=== PATIENT | male | born 1955 | race Caucasian/White ===

== ENCOUNTER → 2020-07-02 13:33 | Outpatient (BNVA) | payer OTHER, SELFPAY | PROVIDERS: PCP Internal Medicine; Visit Provider Urology | DX: Z76.89 Persons encountering health services in other specified circumstances (principal) ==

== ENCOUNTER → 2020-11-25 09:40 | Outpatient (BNVA) | payer OTHER, SELFPAY | PROVIDERS: PCP Internal Medicine; Visit Provider Urology | DX: S76.319A Strain of muscle, fascia and tendon of the posterior muscle group at thigh level, unspecified thigh, initial encounter (principal) | CPT/HCPCS: 51798 ==

== ENCOUNTER → 2021-06-02 10:37 | Outpatient (BNVA) | payer OTHER, SELFPAY | PROVIDERS: PCP Internal Medicine; Visit Provider Urology ==

== ENCOUNTER → 2021-07-14 12:47 | Outpatient (BNVA) | payer OTHER, SELFPAY | PROVIDERS: PCP Internal Medicine; Visit Provider Urology ==

== ENCOUNTER → 2021-07-22 15:26 | Outpatient (BNVA) | payer OTHER, SELFPAY | PROVIDERS: PCP Internal Medicine; Referring Provider Internal Medicine; Visit Provider Surgery ==

== ENCOUNTER 2021-08-20 16:08 | Outpatient (REF) | payer OTHER, SELFPAY ==
[2021-08-20 17:51] LABS: Prostate Specific Antigen 0.74 ng/mL (<0.05-4.0)
== END 2021-08-20 16:09 | disposition home or self-care (01) ==
LOC: HO.LAB 16:08
PROVIDERS: Visit Provider Urology
DX: Z12.5 Encounter for screening for malignant neoplasm of prostate (principal); N13.8 Other obstructive and reflux uropathy; N40.1 Benign prostatic hyperplasia with lower urinary tract symptoms
CPT/HCPCS: 36415; 84153

== ENCOUNTER → 2021-08-24 13:03 | Outpatient (BNVA) | payer OTHER, SELFPAY | PROVIDERS: PCP Internal Medicine; Visit Provider Urology ==

== ENCOUNTER 2021-09-01 06:00 | Day surgery (SDC) | payer OTHER, SELFPAY ==
[2021-08-26 14:04] VITALS: BMI 27.6
--- NOTE | 2021-08-30 12:56 | HO.ANESPROP2 ---
Documented by User: Karen Sexton NP 08/30/21 12:56 HPI - Anesthesia Eval Consult details Narrative: 65yo M for Right Hernia Repair Inguinal PMFSH Active Problems Active Problems: All Active Problems (Updated 08/26/21 @ 14:04 by Joanna Clemens RN) BPH w urinary obs/LUTS (Acute) Microscopic hematuria (Acute) Hamstring muscle strain (Acute) Prostatitis (Acute) Inguinal hernia (Acute) Past Medical History Medical History (Updated 08/26/21 @ 14:04 by Joanna Clemens RN) Bladder outlet obstruction COVID-19 vaccine series completed Hx of melanoma of skin Incomplete emptying of bladder Microscopic hematuria Nocturia Prostatitis Smoker Weak urinary stream Surgical History Surgical History (Updated 08/26/21 @ 14:04 by Joanna Clemens RN) H/O colonoscopy Hx of cholecystectomy Hx of melanoma excision Hx of parotidectomy Social History Social History (Updated 08/26/21 @ 14:06 by Joanna Clemens RN) Alcohol intake: former Patient Tobacco Use Status: Current everyday Tobacco user Tobacco use type: Cigarette Cigarettes Per Day: 12 Years Smoked: 50 Use of substances other than those prescribed or required for medical reasons: No Have you been hit, kicked, punched, or otherwise hurt by someone within the past year? If so, by whom?: No Are you DNR?: No Advance Directives: No Advance Directives Information Provided: Yes (brochure mailed) Advance Directives on File: No Recently lost weight without trying: No Eating poorly because of decreased appetite: No Nutrition Risks: No Nutritional Risk Poor oral hygiene: No Meds Allergies Allergy/AdvReac Type Severity Reaction Status Date / Time No Known Allergies Allergy Verified 09/01/21 06:22 Home Medications Medication Instructions Recorded Confirmed Last Taken Type lisinopril 20 1 tab PO DAILY 07/14/21 08/26/21 Unknown History mg-hydrochlorothiazide 25 mg tablet Exam Exam Date and Time: August 30, 2021 1256 Height,Weight and Vital Signs: Height 5 ft 6 in Weight 77.564 kg Assessment and Plan Assessment Anesthesia Assessment: Chart Reviewed Documented by User: Regan Wright MD 09/01/21 07:28 PMFSH Past Medical History Medical History (Updated 08/26/21 @ 14:04 by Joanna Clemens RN) Bladder outlet obstruction COVID-19 vaccine series completed Hx of melanoma of skin Incomplete emptying of bladder Microscopic hematuria Nocturia Prostatitis Smoker Weak urinary stream Family History Family history of problems with anesthesia: No Surgical History Surgical History (Updated 08/26/21 @ 14:04 by Joanna Clemens RN) H/O colonoscopy Hx of cholecystectomy Hx of melanoma excision Hx of parotidectomy History of Problems with Anesthesia: No Social History Social History (Updated 08/26/21 @ 14:06 by Joanna Clemens RN) Alcohol intake: former Patient Tobacco Use Status: Current everyday Tobacco user Tobacco use type: Cigarette Cigarettes Per Day: 12 Years Smoked: 50 Use of substances other than those prescribed or required for medical reasons: No Have you been hit, kicked, punched, or otherwise hurt by someone within the past year? If so, by whom?: No Are you DNR?: No Advance Directives: No Advance Directives Information Provided: Yes (brochure mailed) Advance Directives on File: No Recently lost weight without trying: No Eating poorly because of decreased appetite: No Nutrition Risks: No Nutritional Risk Poor oral hygiene: No Meds Allergies Allergy/AdvReac Type Severity Reaction Status Date / Time No Known Allergies Allergy Verified 09/01/21 06:22 Home Medications Medication Instructions Recorded Confirmed Last Taken Type lisinopril 20 1 tab PO DAILY 07/14/21 08/26/21 Unknown History mg-hydrochlorothiazide 25 mg tablet Exam Airway Mallampati Class: II TM Dist: >3cm Neck ROM: Full Loose/Missing/Broken Teeth: No Heart: ok Lungs: ok Assessment and Plan Final Anesthetic Review Family History of Problems with Anesthesia: No History of Problems with Anesthesia: No NPO: Yes ASA Class: II Final Preanesthetic Review: No Changes in Pt Med Stat, Meds/Allgs Chart Reviewed, Consent Obtained/Reviewed and Anes Risks/Benef Reviewed Patient Risk: Low Procedure Risk: Low Anesthetic Plan Anesthetic Plan: GA and Agree w/ Assess. and Plan Disposition: Standard PACU
[2021-09-01] VITALS (7 sets, daily range): BP systolic 101–154; BP diastolic 65–77; PULSE 57–69; RESP 14–16; TEMP 36.1–36.5; O2SAT 97–99
[2021-09-01] MEDS: Lactated Ringers 1,000 ML 100 ML IVCONT (06:39)
--- NOTE | 2021-09-01 07:10 | MHC.SHP ---
Pre-Procedural Eval Section A Date of Service: 09/01/21 The patient is an INPATIENT: No Changes since office visit: Yes Patient answered all questions; No Cold of Flu in the past 2 weeks, No New Medical Problems and No Changes in Medication The History & Physical has been completed within 30 days and I have reviewed it.: No Section B Chief Complaint: Inguinal Hernia Details of Present Illness: No pain, nausea, vomiting, hernia is reducible with light pressure Relevant Family History (Specify if Yes): No Relevant Social History: None Present Medications: see Short Stay Collaborative assessment Medical History: Significant History (BPH) History of Previous Operations: No relevant previous surgery Allergies: Allergies Allergy/AdvReac Type Severity Reaction Status Date / Time No Known Allergies Allergy Verified 09/01/21 06:22 Review of Systems Sugical H&P ROS: Negative: Constitution, Cardiovascular, Respiratory, Neurological, Psychiatric, Hem-Onc, Allergic/Immunologic, Gastrointestinal, Genitourinary, Musculoskeletal, Integumentary, Endocrine and Eyes/Ears/Nose/Throat Exam Surgical H&P Exam: Normal: HEENT, Normal: Heart, Normal: Lungs, Normal: Extremities, Normal: Abdomen (Reducible RIH), Normal: Skin and Normal: Neurological Plan Diagnosis/Plan: Unchanged I have reviewed the history and physical and performed a pertinent physical examination on my patient. No changes have occurred unless specified.
--- NOTE | 2021-09-01 07:15 | W.PM.OPN ---
Operative Note Operative Note Date of Service: 09/01/21 Narrative: Preoperative diagnosis:Right inguinal hernia Postoperative diagnosis:same Procedure:Repair of right inguinal hernia with mesh Surgeon: Adonis Pickett MD Erp Implementation Consultant: Elaine Damon PA-C Anesthesia:General LMA Indications for procedure:65 year old male patient presenting with a palpable lump in the right groin which increases with lifting and coughing Operative findings: large indirect and small direct inguinal hernia Specimen: lipoma of the cord Estimated blood loss: 2 mls Complications: none Procedure details: Patient was brought to the OR and placed in a supine position.? After administering general anesthesia the patient's abdomen was prepped with ChloraPrep and draped in a sterile fashion.? A surgical time-out was called the consent confirmed.? Patient received preoperative antibiotics and Venodyne boots were in place. Local anesthesia consisting of 0.5% Sensorcaine with epinephrine was infiltrated over the right inguinal ligament.? Incision was then made in oblique fashion over the inguinal ligament.? This carried out through subcutaneous tissue past Shilpa's fashion up to the external oblique aponeurosis.? Additional local was infiltrated below the external oblique aponeurosis.? This was then incised with a scalpel wide with the Metzenbaum scissors.? Spermatic cord was then dissected free from the surrounding inguinal canal and retracted using a [place] drain. The floor of the inguinal canal was examined and a small direct hernia was identified. ? Fibers of the cremasteric muscle were then and an indirect lipoma of the cord was identified.? This was dissected down to the internal ring.? The lipoma was ligated with a 3-0 Polysorb tie and excised. No sac was identified. ?The indirect space was dissected into the preperitoneal space and opened further with an open ray-shilpi sponge. ? A large PHS mesh was then obtained.? The circular underlay was placed into the preperitoneal space and deployed.? The overlay was then secured to the pubic tubercle conjoined tendon shelving edge of the inguinal ligament using interrupted 0 Polysorb sutures.? A slit was made in the mesh and the mesh were wrapped around the spermatic cord at the internal ring.? This was then secured to the shelving edge of the inguinal ligament using the 0 Polysorb suture.? This was felt to be loose enough to allow the tip of an index finger to pass.? Wounds were checked for hemostasis.? Wounds were irrigated with saline solution and suctioned dry.? External oblique aponeurosis was then closed using a running 2 0 Polysorb suture.? Shilpa's fascia and dermis reapproximated using interrupted 3-0 Polysorb sutures.? Skin was then closed using a running subcuticular 4-0 Polysorb suture.? Steri-Strips 2 x 2 gauze and Tegaderm were then applied.? The patient tolerated the procedure well.? Sponge, instrument, needle counts reported as correct.? Patient was transferred to PACU in stable condition.
== END 2021-09-01 09:47 | disposition home or self-care (01) ==
PROVIDERS: PCP Internal Medicine; Visit Provider Surgery
PROC: (CPT 49505; principal; 2021-09-01 07:30)
DX: K40.90 Unilateral inguinal hernia, without obstruction or gangrene, not specified as recurrent (principal); D17.6 Benign lipomatous neoplasm of spermatic cord; Z79.899 Other long term (current) drug therapy; Z90.49 Acquired absence of other specified parts of digestive tract; F17.210 Nicotine dependence, cigarettes, uncomplicated
CPT/HCPCS: 49505; 88304; C1781; J0690; J1100; J1885; J2250; J2405; J3010

== ENCOUNTER → 2021-09-09 10:08 | Outpatient (BNVA) | payer OTHER, SELFPAY | PROVIDERS: PCP Internal Medicine; Visit Provider Surgery | DX: Z48.815 Encounter for surgical aftercare following surgery on the digestive system (principal); Z87.19 Personal history of other diseases of the digestive system ==

== ENCOUNTER → 2021-10-08 11:04 | Outpatient (BNVA) | payer OTHER, SELFPAY | PROVIDERS: PCP Internal Medicine; Visit Provider Surgery | DX: Z13.89 Encounter for screening for other disorder (principal) ==

== ENCOUNTER → 2021-10-22 13:29 | Outpatient (BNVA) | payer OTHER, SELFPAY | PROVIDERS: PCP Internal Medicine; Visit Provider Urology | DX: N40.1 Benign prostatic hyperplasia with lower urinary tract symptoms (principal) ==

== ENCOUNTER → 2021-11-03 11:58 | Outpatient (BNVA) | payer OTHER, SELFPAY | PROVIDERS: PCP Internal Medicine; Visit Provider Urology | DX: N41.9 Inflammatory disease of prostate, unspecified (principal) ==

== ENCOUNTER → 2021-12-28 12:59 | Outpatient (BNVA) | payer OTHER, SELFPAY | PROVIDERS: PCP Internal Medicine; Visit Provider Urology | DX: R10.32 Left lower quadrant pain (principal) | CPT/HCPCS: 51798 ==

== ENCOUNTER → 2022-11-24 13:24 | Outpatient (BNVA) | payer OTHER, SELFPAY | PROVIDERS: PCP Internal Medicine; Visit Provider Nurse Practitioner Family | DX: R10.32 Left lower quadrant pain (principal); N50.82 Scrotal pain | CPT/HCPCS: 20552 ==

== ENCOUNTER 2023-01-05 15:36 | Outpatient (AMB) | payer OTHER, SELFPAY ==
--- NOTE | 2023-01-05 15:58 | MHC.OFFVIS ---
Intake Intake Visit Reasons: 6w follow up Intake Note: Patient is present for follow up Prostatitis Urology Medication: finasteride Blood Thinner: none Artificial Plastic Eye Maker Required: No Accompanied by: Self / Same As Patient Allergies No Known Allergies Allergy (Verified 01/08/23 20:54) Medication List - Last Reconciled 01/08/23 by LIDIA Romano finasteride 5 mg PO DAILY 90 days lisinopril-hydrochlorothiazide 20-25 mg 1 tab PO DAILY HPI HPI Comments History of Present Illness Details David is a very pleasant 67-year-old male patient of Dr. Solorzano. He has a past medical history of bladder outlet obstruction, history of melanoma of the skin on his face with excision, incomplete bladder emptying, microscopic hematuria, nocturia, prostatitis, smoker, and weak urinary stream. He presents to the office today for a follow up. Of note, patient was previously seen approximately 1 month ago at which time a nerve block was performed in the office for ongoing left-sided testicular/scrotal/groin pain. When asked he reports to be doing and feeling much better. He reports significant improvement in testicular/scrotal/groin pain he had been experiencing over the last few months. He reports pain to be dull however not as sharp and intense as prior. During last office visit patient was referred to physical therapy however in discussion with the patient today he reports to not have initiated therapy however, would like to. In office urinalysis results reviewed with the patient today. Will refer to physical therapy as planned. Patient denies any urological issues or concerns at this time. When asked he denies urinary urgency, urinary frequency, incontinence, nocturia, hematuria, dysuria, foul smelling urine, changes to urinary stream, flank pain, fever, and or chills. He is happy with his current voiding parameters. Patient reports compliance with finasteride daily. Discussed obtaining PSA for further assessment evaluation prior to next office visit. PSAa are as follows: 09/07--0.7 07/10--0.8 08/09--1.1 PFSH Medical History Bladder outlet obstruction COVID-19 vaccine series completed Hx of melanoma of skin Incomplete emptying of bladder Microscopic hematuria Nocturia Prostatitis Smoker Weak urinary stream Surgical History H/O colonoscopy History of right inguinal hernia repair (09/01/21) Hx of cholecystectomy Hx of melanoma excision Hx of parotidectomy Social History Alcohol intake: former Patient Tobacco Use Status: Current everyday Tobacco user Tobacco use type: Cigarette Cigarettes Per Day: 12 Years Smoked: 50 Review of Systems Const Reports no additional complaints Eyes Reports no additional complaints ENT Reports no additional complaints Card Reports no additional complaints Resp Reports no additional complaints GI Reports no additional complaints Reports as per HPI Neuro Reports no additional complaints Psych Reports no additional complaints Endo Reports no additional complaints Alexy/Lymph Reports no additional complaints Aller/Immun Reports no additional complaints Physical Exam Const General: cooperative, healthy appearing, comfortable, no acute distress, well developed, alert and awake Orientation/consciousness: patient oriented x3 Limitations: no limitations HEENT Head: Yes normal to inspection, Yes normocephalic and Yes atraumatic Ears: hearing grossly normal bilaterally Eyes General: appearance normal, both eyes and all related structures Neck Neck: Yes normal visual inspection and Yes trachea midline Chest Chest palpation & inspection: normal inspection of the chest Resp Effort & Inspection: normal respiratory effort and able to speak in complete sentences Cardio Rate: regular rate GI Inspection: Yes normal to inspection General: Yes no CVA tenderness Back/Spine/Pelvis Back: no CVA tenderness Skin General skin exam: no rashes or lesions noted Neuro General: patient oriented x3 Extrem General: Yes normal to inspection Psych Appearance: grossly normal and well kempt Mental Status: mental status grossly normal Speech and movement: Normal speech and movement present and Clear speech present Affect: normal affect Attitude: cooperative Thought process: Normal thought process present Thought content: Normal thought content present Insight: Good insight present (Psych) Judgement: Good judgement present (Psych) Results AMB Urinalysis, Automated UA Leukoctes 0.2 Dequan/uL Last Edit by Kt Dumont on 01/05/23 16:20 UA Nitrite Last Edit by Kt Dumont on 01/05/23 16:20 UA Urobilinogen 0.2 mg/dL Last Edit by Kt Dumont on 01/05/23 16:20 UA Protein 15 mg/dL Last Edit by Kt Dumont on 01/05/23 16:20 UA pH 5.5 Last Edit by Kt Thomasrudy on 01/05/23 16:20 UA Blood 0 Mihai/uL Last Edit by Deanjenny Thomasrudy on 01/05/23 16:20 UA Specific Vantage 1.025 Last Edit by Ranjunior Martharudy on 01/05/23 16:20 UA Ketone Last Edit by Ranjunior Martharudy on 01/05/23 16:20 UA Bilirubin 0 mg/dL Last Edit by Ranolmanjenny Thomasrudy on 01/05/23 16:20 UA Glucose 0 mg/dL Last Edit by Kt Martharudy on 01/05/23 16:20 Results Reviewed Results Reviewed: Laboratory Last Values Urine pH (Auto) 5.5 01/05/23 16:17 Specific Vantage (Auto) 1.025 01/05/23 16:17 Urine Protein (Auto) 15 mg/dL 01/05/23 16:17 Glucose (UA)(Auto) 0 mg/dL 01/05/23 16:17 Urine Blood (Auto) 0 Mihai/uL 01/05/23 16:17 Urine Bilirubin (Auto) 0 mg/dL 01/05/23 16:17 Urine Urobilinogen (Auto) 0.2 mg/dL 01/05/23 16:17 Leukocyte Esterase (Auto) 0.2 Dequan/uL 01/05/23 16:17 Assessment & Plan Assessment & Plan (1) Scrotal pain: Code(s): N50.82 - Scrotal pain (2) Deep inguinal pain, left: Code(s): R10.32 - Left lower quadrant pain (3) BPH w urinary obs/LUTS: Code(s): N40.1 - Benign prostatic hyperplasia with lower urinary tract symptoms; N13.8 - Other obstructive and reflux uropathy Plan In office urinalysis results reviewed with the patient today. Patient reports significant improvement in scrotal/testicular/groin pain since receiving nerve block at last office visit. Will again refer to physical therapy as discussed and planned. Patient denies any urological issues or concerns at this time. Continue finasteride as discussed and prescribed. PSA ordered Discussed quitting/limiting cigarette smoking for overall health and well-being. Follow-up in 3 months with lab to be completed prior; or sooner with any issues, concerns, and or questions. Orders: Orders Prostate Specific Antigen Today N13.8 - Other obstructive and reflux uropathy, N40.1 - Benign prostatic hyperplasia with lower urinary tract symptoms AMB Urinalysis Automated 01/05/23 Z13.9 - Encounter for screening, unspecified Patient Instructions: The patient had an opportunity to ask questions regarding the treatment plan. All questions were answered. Physical exam, labs, and imaging were discussed and reviewed in detail. As well as risks, benefits, and discussion of treatment choices. No major barriers to understanding were identified. The patient expressed understanding and agreement with the above treatment plan. The patient was made aware they should contact our office by phone for worsening of their current condition, the appearance of new symptoms, or with any questions or concerns. Compliance is encouraged with any medications and follow up testing that is ordered. It is a privilege to be allowed the opportunity to participate in? your urological care.? Again, if you have any questions or concerns If you have any questions or concerns please do not hesitate to contact me. The office is [phone]. This note is constructed using voice recognition software. While every effort has been made to ensure accuracy labor relations analyst errors may have been included. Yours sincerely, LIDIA Romano Coding Level of Care Code Est Pt Level 3 (40967) Diagnoses Scrotal pain N50.82 Deep inguinal pain, left R10.32 BPH w urinary obs/LUTS N40.1; N13.8
== END 2023-01-05 16:36 | disposition home or self-care (01) ==
PROVIDERS: PCP Internal Medicine; Visit Provider Nurse Practitioner Family
DX: N50.82 Scrotal pain (principal); R10.32 Left lower quadrant pain; N40.1 Benign prostatic hyperplasia with lower urinary tract symptoms; N13.8 Other obstructive and reflux uropathy
CPT/HCPCS: 99213

== ENCOUNTER → 2023-01-05 15:36 | Outpatient (BNVA) | payer OTHER, SELFPAY | PROVIDERS: PCP Internal Medicine; Visit Provider Nurse Practitioner Family ==

== ENCOUNTER 2023-04-20 16:11 | Outpatient (REF) | payer OTHER, SELFPAY ==
[2023-04-20 18:14] LABS: Prostate Specific Antigen 0.53 ng/mL (<0.05-4.0)
== END 2023-04-20 16:12 | disposition home or self-care (01) ==
LOC: HO.LAB 16:11
PROVIDERS: Visit Provider Nurse Practitioner Family
DX: Z12.5 Encounter for screening for malignant neoplasm of prostate (principal); N40.1 Benign prostatic hyperplasia with lower urinary tract symptoms; N13.8 Other obstructive and reflux uropathy
CPT/HCPCS: 36415; 84153

== ENCOUNTER 2023-04-24 15:31 | Outpatient (AMB) | payer OTHER, SELFPAY ==
--- NOTE | 2023-04-24 15:31 | MHC.OFFVIS ---
Intake Intake Visit Reasons: 3m follow up Intake Note: Patient is present for follow up Prostatitis/lab (psa 0.53) Urology Medication: finasteride Blood Thinner: none Assembler Equipment Required: No Accompanied by: Self / Same As Patient Allergies No Known Allergies Allergy (Verified 04/24/23 20:22) Medication List - Last Reconciled 04/24/23 by LIDIA Romano finasteride 5 mg PO DAILY 90 days lisinopril-hydrochlorothiazide 20-25 mg 1 tab PO DAILY HPI HPI Comments History of Present Illness Details David is a very pleasant 67-year-old male patient of Dr. Solorzano. He has a past medical history of bladder outlet obstruction, history of melanoma of the skin on his face with excision, incomplete bladder emptying, microscopic hematuria, nocturia, prostatitis, smoker, and weak urinary stream. He presents to the office today for a follow up. Recent PSA results reviewed with the patient today. As noted below. Discussed taking finasteride Monday, Wednesdays, and Fridays opposed to daily. Patient denies any bothersome urinary issues at this time. When asked he denies urinary urgency, urinary frequency, incontinence, nocturia, hematuria, dysuria, foul smelling urine, changes to urinary stream, flank pain, fever, and or chills. He reports to be happy with current voiding parameters. He discusses continuation of left-sided testicular/scrotal/groin pain. He reports noting significant improvement in left-sided testicular/groin pain after receiving rectus abdominus insertion site injection in November. He otherwise denies any other issues or concerns. In office urinalysis results reviewed with the patient today. PSAa are as follows: 05/11--0.5 09/07--0.7 07/10--0.8 08/09--1.1 PFSH Medical History Smoker Hx of melanoma of skin COVID-19 vaccine series completed Prostatitis Bladder outlet obstruction Incomplete emptying of bladder Nocturia Weak urinary stream Microscopic hematuria Surgical History History of right inguinal hernia repair (09/01/21) Hx of parotidectomy H/O colonoscopy Hx of cholecystectomy Hx of melanoma excision Social History Alcohol intake: former Patient Tobacco Use Status: Current everyday Tobacco user Tobacco use type: Cigarette Cigarettes Per Day: 12 Years Smoked: 50 Review of Systems Const Reports no additional complaints Eyes Reports no additional complaints ENT Reports no additional complaints Card Reports no additional complaints Resp Reports no additional complaints GI Reports no additional complaints Reports as per HPI Skin/Breast Reports as per HPI Neuro Reports no additional complaints Psych Reports no additional complaints Endo Reports no additional complaints Alexy/Lymph Reports no additional complaints Aller/Immun Reports no additional complaints Physical Exam Const General: cooperative, healthy appearing, comfortable, no acute distress, well developed, alert and awake Orientation/consciousness: patient oriented x3 Limitations: no limitations HEENT Head: Yes normal to inspection, Yes normocephalic and Yes atraumatic Ears: hearing grossly normal bilaterally Eyes General: appearance normal, both eyes and all related structures Neck Neck: Yes normal visual inspection and Yes trachea midline Chest Chest palpation & inspection: normal inspection of the chest Resp Effort & Inspection: normal respiratory effort and able to speak in complete sentences Cardio Rate: regular rate GI Inspection: Yes normal to inspection General: Yes no CVA tenderness Back/Spine/Pelvis Back: no CVA tenderness Skin General skin exam: no rashes or lesions noted Neuro General: patient oriented x3 Extrem General: Yes normal to inspection Psych Appearance: grossly normal and well kempt Mental Status: mental status grossly normal Speech and movement: Normal speech and movement present and Clear speech present Affect: normal affect Attitude: cooperative Thought process: Normal thought process present Thought content: Normal thought content present Insight: Good insight present (Psych) Judgement: Good judgement present (Psych) Results AMB Urinalysis, Automated UA Leukoctes 0 Dequan/uL Last Edit by [facility] on 04/24/23 15:44 UA Nitrite Negative Last Edit by [facility] on 04/24/23 15:44 UA Urobilinogen 0.2 mg/dL Last Edit by [facility] on 04/24/23 15:44 UA Protein 0 mg/dL Last Edit by [facility] on 04/24/23 15:44 UA pH 5.5 Last Edit by [facility] on 04/24/23 15:44 UA Blood 0 Mihai/uL Last Edit by [facility] on 04/24/23 15:44 UA Specific Molino 1.030 Last Edit by Kt Thomasrudy on 04/24/23 15:44 UA Ketone Negative Last Edit by Kt Dumont on 04/24/23 15:44 UA Bilirubin 0 mg/dL Last Edit by Kt Thomasrudy on 04/24/23 15:44 UA Glucose 0 mg/dL Last Edit by Kt Thomasrudy on 04/24/23 15:44 Results Reviewed Results Reviewed: Laboratory Last Values Urine pH (Auto) 5.5 04/24/23 15:33 Specific Molino (Auto) 1.030 04/24/23 15:33 Urine Protein (Auto) 0 mg/dL 04/24/23 15:33 Glucose (UA)(Auto) 0 mg/dL 04/24/23 15:33 Urine Ketones (Auto) Negative 04/24/23 15:33 Urine Blood (Auto) 0 Mihai/uL 04/24/23 15:33 Urine Nitrite (Auto) Negative 04/24/23 15:33 Urine Bilirubin (Auto) 0 mg/dL 04/24/23 15:33 Urine Urobilinogen (Auto) 0.2 mg/dL 04/24/23 15:33 Leukocyte Esterase (Auto) 0 Dequan/uL 04/24/23 15:33 Assessment & Plan Assessment & Plan (1) Scrotal pain: Code(s): N50.82 - Scrotal pain (2) Deep inguinal pain, left: Code(s): R10.32 - Left lower quadrant pain (3) Prostatitis: Code(s): N41.9 - Inflammatory disease of prostate, unspecified Plan In office urinalysis results reviewed with the patient today; as noted above. Patient denies any bothersome urinary issues at this time. Patient reports be happy with current voiding parameters. Continue finasteride; will start taking Wednesdays and Fridays. Discussed at length importance of stretching and OTC Tylenol Motrin to help with left-sided scrotal/groin pain patient has been experiencing. Discussed at length importance of limiting/quitting cigarette smoking for overall health and well-being. Will schedule follow-up with Dr. Jorge for rectus abdominus insertion site injection and or further assessment evaluation. Orders: Orders AMB Urinalysis Automated Today Z13.9 - Encounter for screening, unspecified Medications: Changed From finasteride 5 mg PO DAILY 90 days 90 tabs 1RF N40.1 - Benign prostatic hyperplasia with lower urinary tract symptoms, R33.9 - Retention of urine, unspecified To finasteride Patient will take Wednesdays and Fridays 5 mg PO .MWF 90 days 60 tabs 1RF N40.1 - Benign prostatic hyperplasia with lower urinary tract symptoms, R33.9 - Retention of urine, unspecified Patient Instructions: The patient had an opportunity to ask questions regarding the treatment plan. All questions were answered. Physical exam, labs, and imaging were discussed and reviewed in detail. As well as risks, benefits, and discussion of treatment choices. No major barriers to understanding were identified. The patient expressed understanding and agreement with the above treatment plan. The patient was made aware they should contact our office by phone for worsening of their current condition, the appearance of new symptoms, or with any questions or concerns. Compliance is encouraged with any medications and follow up testing that is ordered. It is a privilege to be allowed the opportunity to participate in? your urological care.? Again, if you have any questions or concerns If you have any questions or concerns please do not hesitate to contact me. The office is [phone]. This note is constructed using voice recognition software. While every effort has been made to ensure accuracy clinical psychology teacher errors may have been included. Yours sincerely, LIDIA Romano Coding Level of Care Code Est Pt Level 3 (78268) Diagnoses Scrotal pain N50.82 Deep inguinal pain, left R10.32 Prostatitis N41.9
== END 2023-04-24 15:59 | disposition home or self-care (01) ==
LOC: HO.HUSH 15:31
PROVIDERS: PCP Internal Medicine; Visit Provider Nurse Practitioner Family
DX: N50.82 Scrotal pain (principal); R10.32 Left lower quadrant pain; N41.9 Inflammatory disease of prostate, unspecified
CPT/HCPCS: 99213

== ENCOUNTER → 2023-04-24 15:31 | Outpatient (BNVA) | payer OTHER, SELFPAY | PROVIDERS: PCP Internal Medicine; Visit Provider Nurse Practitioner Family | DX: N41.9 Inflammatory disease of prostate, unspecified (principal); R10.32 Left lower quadrant pain; N50.82 Scrotal pain | CPT/HCPCS: 81003 ==

== ENCOUNTER 2023-07-04 14:50 | Outpatient (AMB) | payer OTHER, SELFPAY ==
--- NOTE | 2023-07-04 15:00 | MHC.OFFVIS ---
Intake Intake Visit Reasons: Left side inguinal injection Intake Note: Patient is Present for Follow Up Injection Urology Medication: Finasteride Antibiotic Allergies: None Blood Thinners: None Allergies No Known Allergies Allergy (Verified 04/24/23 20:22) [facility] HPI Comments History of Present Illness Details David SANCHEZ is a very pleasant male. He is a patient of Dr London. He is seen for the following urologic conditions. - lower urinary tract symptoms - microscopic hematuria - prostatitis - inguinal disruption Here for left inguinal injection. He discusses continuation of left-sided testicular/scrotal/groin pain. He reports noting significant improvement in left-sided testicular/groin pain after receiving rectus abdominus insertion site injection previously 11/07 Microgen negative - would not treat as prostatitis currently Lower Urinary Tract Symptoms: stable Current visit is for further evaluation of, lower urinary tract symptoms, predominate obstructive symptoms - On finasteride Current treatment includes medication, 5-AR. Prior treatments include 11/03 flomax - but was dizzy. Prior Prostate Score 01/03 , moderate. PSA 07/08 1.0, 07/10 0.8, 05/11 0.5 Prostatitis - 11/07 Microscopic Hematuria: Did have 1+ on prior visit Microscopic hematuria was diagnosed during routine UA 11/03. clear with cystoscopy Since the last visit the patient has has not noticed gross hematuria, continues to test positive for microscopic hematuria. Relevant medical history for 1) Smoker for 45 ppd hx 2) workplace exposure to organics 3) No family history. Radiographic imagin/18 , CT IVP - normal. Other investigations 11/03 , cytology, normal. Therapeutic plan continue to follow COUNTS INCLUDE 234 BEDS AT THE [facility] Medical History Smoker Hx of melanoma of skin COVID-19 vaccine series completed Prostatitis Bladder outlet obstruction Incomplete emptying of bladder Nocturia Weak urinary stream Microscopic hematuria Surgical History History of right inguinal hernia repair (09/01/21) Hx of parotidectomy H/O colonoscopy Hx of cholecystectomy Hx of melanoma excision Social History Alcohol intake: former Patient Tobacco Use Status: Current everyday Tobacco user Tobacco use type: Cigarette Cigarettes Per Day: 12 Years Smoked: 50 Office Procedures Procedure Thyroid Biopsy Procedural Documentation: Office procedure - Rectus Insertion Injection The left inguinal ring was palpated with the left hand. Pain was elicited on medial aspect of the inguinal ring at the insertion of the rectus tendon into the symphysis pubis. Alcohol prep was applied. A 22 gauge 3.5 in Chiba needle was advanced and under tactile guidance the tip was placed through rectus tendon insertion. Negative aspiration was performed. A fan-like distribution for injection of a total of 10 cc was made. The injection consisted of 5 cc of 0.5% bupivacaine, 5 cc of 1% lidocaine. The injection was well tolerated with only transient pain. CPT 97715 ICD M77.8 Enthesopathy Assessment & Plan Assessment & Plan (1) Deep inguinal pain, left: Code(s): R10.32 - Left lower quadrant pain Plan 2 week follow-up Lidia Tele Patient Instructions: Imaging studies, laboratory and physical exam results were discussed and reviewed in detail. No major barriers to patient understanding were identified. An opportunity to ask questions regarding the treatment plan was provided. All questions were answered. The patient expressed understanding and agreement with the above treatment plan. The patient is aware they should contact our office by phone for worsening of their current condition or the appearance of new urologic symptoms. Compliance is encouraged with any medications and followup testing that is ordered. It is a privilege to participate in the urologic care of your patient. If you have any questions or concerns regarding treatment for the above conditions, or other urologic issues, please do not hesitate to contact me. The office telephone contact is [phone]. This note is constructed using voice recognition software. While every effort has been made to ensure accuracy welder apprentice arc errors may have been included. Yours sincerely, Dr Junito Jorge MD, [facility] - Urology Providers of Expert, Compassionate Care for the Genitourinary System Coding Level of Care Code Procedure Only Diagnoses Deep inguinal pain, left R10.32
== END 2023-07-04 15:24 | disposition home or self-care (01) ==
PROVIDERS: PCP Internal Medicine; Visit Provider Urology
DX: M77.8 Other enthesopathies, not elsewhere classified (principal); R10.32 Left lower quadrant pain
CPT/HCPCS: 20550

== ENCOUNTER → 2023-07-04 14:50 | Outpatient (BNVA) | payer SELFPAY | PROVIDERS: PCP Internal Medicine; Visit Provider Urology ==

== ENCOUNTER 2023-07-18 08:31 | Outpatient (AMB) | payer OTHER, SELFPAY ==
--- NOTE | 2023-07-18 08:32 | MHC.OFFVIS ---
Intake Intake Visit Reasons: 2w follow up Intake Note: Patient presents for tele visit follow up Prostatitis and Scrotal Pain Urology Medication: finasteride Blood Thinner: none Pump Rebuilder Required: No Allergies No Known Allergies Allergy (Verified 07/18/23 08:46) Medication List - Last Reconciled 07/18/23 by LIDIA Romano finasteride 5 mg PO .MWF 90 days lisinopril-hydrochlorothiazide 20-25 mg 1 tab PO DAILY HPI HPI Comments History of Present Illness Details David is a very pleasant 67 year old male patient of Dr. Solorzano. He has a past medical history of nicotine dependence and prostatitis. In discussion with the patient today reports to be doing and feeling well. Of note, patient is status post left inguinal injection with Dr. Jorge 07/04/23. He reports noting significant improvement and relief in his left-sided testicular/scrotal/groin. He denies any bothersome urinary issues or concerns. He denies urinary urgency, urinary frequency, incontinence, nocturia, hematuria, dysuria, foul smelling urine, changes to urinary stream, flank pain, fever, and or chills. He is happy with his current voiding parameters. Discussed obtaining PSA prior next appointment. He otherwise offers no other issues or concerns at this time. Lower Urinary Tract Symptoms: stable Current visit is for further evaluation of, lower urinary tract symptoms, predominate obstructive symptoms - On finasteride Current treatment includes medication, 5-AR. Prior treatments include 11/03 flomax - but was dizzy. Prior Prostate Score 01/03 , moderate. PSA 07/08 1.0, 07/10 0.8, 05/11 0.5 Prostatitis - 11/07 Microscopic Hematuria: Did have 1+ on prior visit Microscopic hematuria was diagnosed during routine UA 11/03. clear with cystoscopy Since the last visit the patient has has not noticed gross hematuria, continues to test positive for microscopic hematuria. Relevant medical history for 1) Smoker for 45 ppd hx 2) workplace exposure to organics 3) No family history. Radiographic imagin/18 , CT IVP - normal. Other investigations 11/03 , cytology, normal. Therapeutic plan continue to follow [facility] Medical History Smoker Hx of melanoma of skin COVID-19 vaccine series completed Prostatitis Bladder outlet obstruction Incomplete emptying of bladder Nocturia Weak urinary stream Microscopic hematuria Surgical History History of right inguinal hernia repair (09/01/21) Hx of parotidectomy H/O colonoscopy Hx of cholecystectomy Hx of melanoma excision Social History Alcohol intake: former Patient Tobacco Use Status: Current everyday Tobacco user Tobacco use type: Cigarette Cigarettes Per Day: 12 Years Smoked: 50 Review of Systems Const Reports no additional complaints Eyes Reports no additional complaints ENT Reports no additional complaints Card Reports no additional complaints Resp Reports no additional complaints GI Reports no additional complaints Reports as per HPI Skin/Breast Reports as per HPI Neuro Reports no additional complaints Psych Reports no additional complaints Endo Reports no additional complaints Alexy/Lymph Reports no additional complaints Aller/Immun Reports no additional complaints Physical Exam Const General: cooperative, healthy appearing, comfortable, no acute distress, well developed, alert and awake Orientation/consciousness: patient oriented x3 Limitations: no limitations Resp Effort & Inspection: normal respiratory effort and able to speak in complete sentences Neuro General: patient oriented x3 Psych Appearance: grossly normal Speech and movement: Clear speech present Affect: normal affect Attitude: cooperative Thought process: Normal thought process present Thought content: Normal thought content present Insight: Fair insight present (Psych) Judgement: Fair judgement present (Psych) Assessment & Plan Assessment & Plan (1) Deep inguinal pain, left: Code(s): R10.32 - Left lower quadrant pain (2) BPH w urinary obs/LUTS: Code(s): N40.1 - Benign prostatic hyperplasia with lower urinary tract symptoms; N13.8 - Other obstructive and reflux uropathy (3) Scrotal pain: Code(s): N50.82 - Scrotal pain Plan Patient reports significant improvement and relief and left-sided testicular/scrotal/ groin pain. Patient currently denies any bothersome urinary issues or concerns. He is happy with his current voiding parameters. Continue finasteride every other day as discussed and prescribed. Will obtain PSA prior to next appointment. Follow-up April with PSA to be completed prior; or sooner with any issues, concerns, and or questions. Orders: Orders Prostate Specific Antigen Today N13.8 - Other obstructive and reflux uropathy, N40.1 - Benign prostatic hyperplasia with lower urinary tract symptoms, N50.82 - Scrotal pain, R10.32 - Left lower quadrant pain Patient Instructions: The patient had an opportunity to ask questions regarding the treatment plan. All questions were answered. Physical exam, labs, and imaging were discussed and reviewed in detail. As well as risks, benefits, and discussion of treatment choices. No major barriers to understanding were identified. The patient expressed understanding and agreement with the above treatment plan. The patient was made aware they should contact our office by phone for worsening of their current condition, the appearance of new symptoms, or with any questions or concerns. Compliance is encouraged with any medications and follow up testing that is ordered. It is a privilege to be allowed the opportunity to participate in? your urological care.? Again, if you have any questions or concerns If you have any questions or concerns please do not hesitate to contact me. The office is [phone]. This note is constructed using voice recognition software. While every effort has been made to ensure accuracy apartment leasing consultant errors may have been included. Yours sincerely, LUIS Romano Telehealth Telehealth Location of provider rendering services: practice address Location of patient: address on file Patient Identification confirmed using: Name, : Yes Telehealth method: video Patient verbally consented to treatment: Yes Patient verbally consented to billing insurance company: Yes Patient informed of any privacy concerns related to visit: Yes Minutes spent on Phone/Video with Pt.: 15 Coding Level of Care Code Tele Est Pt Level 3 (91272) Diagnoses Deep inguinal pain, left R10.32 BPH w urinary obs/LUTS N40.1; N13.8 Scrotal pain N50.82
== END 2023-07-18 09:17 | disposition home or self-care (01) ==
LOC: HO.HUSH 08:31
PROVIDERS: PCP Internal Medicine; Visit Provider Nurse Practitioner Family
DX: R10.32 Left lower quadrant pain (principal); N40.1 Benign prostatic hyperplasia with lower urinary tract symptoms; N13.8 Other obstructive and reflux uropathy; N50.82 Scrotal pain
CPT/HCPCS: 99213

== ENCOUNTER → 2023-07-18 08:31 | Outpatient (BNVA) | payer OTHER, SELFPAY | PROVIDERS: PCP Internal Medicine; Visit Provider Nurse Practitioner Family ==

== ENCOUNTER 2024-05-11 07:35 | Outpatient (REF) | payer OTHER, SELFPAY ==
[2024-05-11 09:17] LABS: Prostate Specific Antigen 1.03 ng/mL (<0.05-4.0)
== END 2024-05-11 07:36 | disposition home or self-care (01) ==
LOC: HO.LAB 07:35
PROVIDERS: PCP Nurse Practitioner Family; Visit Provider Nurse Practitioner Family
DX: R10.32 Left lower quadrant pain (principal); N40.1 Benign prostatic hyperplasia with lower urinary tract symptoms; N13.8 Other obstructive and reflux uropathy; N50.82 Scrotal pain; Z12.5 Encounter for screening for malignant neoplasm of prostate
CPT/HCPCS: 36415; 84153

== ENCOUNTER 2024-05-15 15:16 | Outpatient (AMB) | payer OTHER, SELFPAY ==
--- NOTE | 2024-05-15 15:27 | A.OFFVIS_ITS ---
Intake Visit Reasons: Follow PSA labs Intake Note: Patient presents for tele visit follow up Prostatitis, scrotal pain, and psa lab results PSA: 1.03 Urology Medication: finasteride Blood Thinner: none Pharmacy Director Required: No Allergies No Known Allergies Allergy (Verified 05/18/24 23:39) Medication List - Last Reconciled 05/18/24 by STEVE Romano- finasteride 5 mg PO .MW 90 days lisinopril-hydrochlorothiazide 20-25 mg 1 tab PO DAILY HPI Comments Details: David is a very pleasant 68 year old male patient of Dr. Solorzano. He has a past medical history of nicotine dependence and prostatitis. In discussion with the patient today reports to be doing and feeling well. Of note, patient is status post left inguinal injection with Dr. Jorge 07/04/23. He reports noting significant improvement and relief in his left-sided testicular/scrotal/groin. He denies any bothersome urinary issues or concerns. He denies urinary urgency, urinary frequency, incontinence, nocturia, hematuria, dysuria, foul smelling urine, changes to urinary stream, flank pain, fever, and or chills. He is happy with his current voiding parameters. Recent PSA results reviewed with the patient today as noted and trended below. When asked he reports compliance with finasteride 3 times per week as prescribed. He otherwise offers no other issues or concerns at this time. Lower Urinary Tract Symptoms: stable Current visit is for further evaluation of, lower urinary tract symptoms, predominate obstructive symptoms - On finasteride Current treatment includes medication, 5-AR. Prior treatments include 11/03 flomax - but was dizzy. Prior Prostate Score 01/03 , moderate. PSA 07/08 1.0, 07/10 0.8, 05/11 0.5, 05/12 1.0 Prostatitis - 11/07 Microscopic Hematuria: Did have 1+ on prior visit Microscopic hematuria was diagnosed during routine UA 5/18. clear with cystoscopy Since the last visit the patient has has not noticed gross hematuria, continues to test positive for microscopic hematuria. Relevant medical history for 1) Smoker for 45 ppd hx 2) workplace exposure to organics 3) No family history. Radiographic imagin/18 , CT IVP - normal. Other investigations 11/03 , cytology, normal. Therapeutic plan continue to follow [facility] Medical History Smoker Hx of melanoma of skin COVID-19 vaccine series completed Prostatitis Bladder outlet obstruction Incomplete emptying of bladder Nocturia Weak urinary stream Microscopic hematuria Surgical History History of right inguinal hernia repair (09/01/21) Hx of parotidectomy H/O colonoscopy Hx of cholecystectomy Hx of melanoma excision Social History Alcohol intake: former Patient Tobacco Use Status: Current everyday Tobacco user Tobacco use type: Cigarette Cigarettes Per Day: 12 Years Smoked: 50 Review of Systems Const Reports no additional complaints Eyes Reports no additional complaints ENT Reports no additional complaints Card Reports no additional complaints Resp Reports no additional complaints GI Reports no additional complaints Reports as per HPI Skin/Breast Reports as per HPI Neuro Reports no additional complaints Psych Reports no additional complaints Endo Reports no additional complaints Alexy/Lymph Reports no additional complaints Aller/Immun Reports no additional complaints Physical Exam Const General: cooperative, healthy appearing, comfortable, no acute distress, well developed, alert and awake Orientation/consciousness: patient oriented x3 Limitations: no limitations HEENT Head: Yes normal to inspection, Yes normocephalic and Yes atraumatic Ears: hearing grossly normal bilaterally Eyes General: appearance normal, both eyes and all related structures Neck Neck: Yes normal visual inspection and Yes trachea midline Chest Chest palpation & inspection: normal inspection of the chest Resp Effort & Inspection: normal respiratory effort and able to speak in complete sentences Cardio Rate: regular rate GI Inspection: Yes normal to inspection General: Yes no CVA tenderness Back/Spine/Pelvis Back: no CVA tenderness Skin General skin exam: no rashes or lesions noted Neuro General: patient oriented x3 Extrem General: Yes normal to inspection Psych Appearance: grossly normal Mental Status: mental status grossly normal Speech and movement: Clear speech present Affect: normal affect Attitude: cooperative Thought process: Normal thought process present Thought content: Normal thought content present Insight: Fair insight present (Psych) Judgement: Fair judgement present (Psych) Results AMB Urinalysis, Automated UA Leukoctes 0 Dequan/uL Last Edit by Kt Dumont on 05/15/24 15:41 UA Nitrite Last Edit by Kt Dumont on 05/15/24 15:41 UA Urobilinogen 0.2 mg/dL Last Edit by Kt Dumont on 05/15/24 15:41 UA Protein 0 mg/dL Last Edit by Kt Dumont on 05/15/24 15:41 UA pH 5.5 Last Edit by Kt Dumont on 05/15/24 15:41 UA Blood 0 Mihai/uL Last Edit by Kt Dumont on 05/15/24 15:41 UA Specific Porum 1.030 Last Edit by Kt Dumont on 05/15/24 15:41 UA Ketone Last Edit by Kt Dumont on 05/15/24 15:41 UA Bilirubin 0 mg/dL Last Edit by Kt Dumont on 05/15/24 15:41 UA Glucose 0 mg/dL Last Edit by Kt Dumont on 05/15/24 15:41 Results Reviewed Results Reviewed: Laboratory Last Values Urine pH (Auto) 5.5 05/15/24 15:30 Specific Porum (Auto) 1.030 05/15/24 15:30 Urine Protein (Auto) 0 mg/dL 05/15/24 15:30 Glucose (UA)(Auto) 0 mg/dL 05/15/24 15:30 Urine Blood (Auto) 0 Mihai/uL 05/15/24 15:30 Urine Bilirubin (Auto) 0 mg/dL 05/15/24 15:30 Urine Urobilinogen (Auto) 0.2 mg/dL 05/15/24 15:30 Leukocyte Esterase (Auto) 0 Dequan/uL 05/15/24 15:30 Assessment & Plan Assessment & Plan (1) Scrotal pain: Code(s): N50.82 - Scrotal pain Category: Medical (2) Deep inguinal pain, left: Code(s): R10.32 - Left lower quadrant pain Category: Medical (3) Prostatitis: Code(s): N41.9 - Inflammatory disease of prostate, unspecified Category: Medical (4) BPH w urinary obs/LUTS: Code(s): N40.1 - Benign prostatic hyperplasia with lower urinary tract symptoms; N13.8 - Other obstructive and reflux uropathy Category: Medical Plan In office urinalysis results reviewed with the patient today; as noted above. Recent PSA results reviewed with the patient today; as noted above. Patient currently denies any bothersome urinary issues or concerns. He reports be happy with current voiding parameters. Continue finasteride 3 times per week as discussed and prescribed; refill provided. Will obtain PSA in 1 year. Follow-up in 1 year with PSA and PVR to be completed prior; or sooner with any issues, concerns, and or questions. Orders: Orders AMB Urinalysis Automated 05/15/24 Z13.9 - Encounter for screening, unspecified Prostate Specific Antigen 1 Year N41.9 - Inflammatory disease of prostate, unspecified Patient Instructions: The patient had an opportunity to ask questions regarding the treatment plan. All questions were answered. Physical exam, labs, and imaging were discussed and reviewed in detail. As well as risks, benefits, and discussion of treatment choices. No major barriers to understanding were identified. The patient expressed understanding and agreement with the above treatment plan. The patient was made aware they should contact our office by phone for worsening of their current condition, the appearance of new symptoms, or with any questions or concerns. Compliance is encouraged with any medications and follow up testing that is ordered. It is a privilege to be allowed the opportunity to participate in? your urological care.? Again, if you have any questions or concerns If you have any questions or concerns please do not hesitate to contact me. The office is [phone]. This note is constructed using voice recognition software. While every effort has been made to ensure accuracy manager welding errors may have been included. Yours sincerely, LIDIA Romano Coding Level of Care Code Est Pt Level 3 (07232) Complex EM visit Add On G2211 Diagnoses Scrotal pain N50.82 Deep inguinal pain, left R10.32 Prostatitis N41.9 BPH w urinary obs/LUTS N40.1; N13.8
== END 2024-05-15 15:52 | disposition home or self-care (01) ==
PROVIDERS: PCP Internal Medicine; Visit Provider Nurse Practitioner Family
DX: N50.82 Scrotal pain (principal); R10.32 Left lower quadrant pain; N41.9 Inflammatory disease of prostate, unspecified; N40.1 Benign prostatic hyperplasia with lower urinary tract symptoms; N13.8 Other obstructive and reflux uropathy
CPT/HCPCS: 99213; G2211

== ENCOUNTER → 2024-05-15 15:16 | Outpatient (BNVA) | payer OTHER, SELFPAY | PROVIDERS: PCP Internal Medicine; Visit Provider Nurse Practitioner Family | DX: N50.82 Scrotal pain (principal); R10.32 Left lower quadrant pain; N41.9 Inflammatory disease of prostate, unspecified; N40.1 Benign prostatic hyperplasia with lower urinary tract symptoms; N13.8 Other obstructive and reflux uropathy; Z79.899 Other long term (current) drug therapy | CPT/HCPCS: 81003 ==

== ENCOUNTER 2025-04-30 10:11 | Outpatient (REF) | payer BC, SELFPAY ==
--- OUTSIDE RECORDS SUMMARY | 2025-04-30 11:59 | XMS_ITS | Patient Health Record ---
[facility] Address [address] [place] [address] Care Team Providers Care Mud Analysis Well Logging Captain Name Role Phone Lisandro Koenig MD Primary Care Provider Lauro Winkler Unavailable [phone] Reason For Referral No Information Medications Medication SIG (Take, Route, Fr equency, Duration) Notes Start Date End Date Status Flomax Active Lisinopril 10 MG Orally Once a day Active Social History Tobacco Use: Social History Observation Description Date Details (start date - stop date) Current Smoker NA - NA Tobacco Use/Smoking Question Answer Notes Are you a: current smoker When did you start smoking? 42 years ago How often do you smoke cigarettes? every day How many cigarettes a day do you smoke? 11-20 Alcohol Screen Question Answer Notes Did you have a drink containing alcohol in the p ast year? No Points 0 Interpretation Negative Tobacco use other than smoking: Question Answer Notes Are you an other tobacco user? No Problems Problem Type SNOMED Code ICD Code Onset Dates Problem Status W/U Status Risk Notes Problem Acquired hammer toe of right foot ([id number]) Other hammer toe(s) (acquired), right foot (M20.41) Active confirmed Plan Of Treatment No Information Insurance Providers Payer Name Payer Address Payer Phone Subscriber Number Group Number Insured Name Patient Relationship to Insured Coverage Start Date Coverage End Date [employer] [address] [place], [place] [address] [phone] [id number] David Thomas Self - patient is the insured Medical (General) History Medical History History ICD Code Broken bones Gall bladder problems Hypertension Joint implants/screws
[2025-04-30 14:00] LABS: Prostate Specific Antigen 1.47 ng/mL (<0.05-4.0)
== END 2025-04-30 10:12 | disposition home or self-care (01) ==
LOC: HO.10HDL 10:11
PROVIDERS: Visit Provider Nurse Practitioner Family
DX: Z12.5 Encounter for screening for malignant neoplasm of prostate (principal); N41.9 Inflammatory disease of prostate, unspecified
CPT/HCPCS: 36415; 84153

== ENCOUNTER 2025-05-12 14:36 | Outpatient (AMB) | payer BC, SELFPAY ==
--- NOTE | 2025-05-12 14:37 | MHC.OFFVIS ---
Intake Visit Reasons: 1 year PSA/PVR Intake Note: Patient presents for follow up visit Labs done: 04/30/25 PSA:1.47 PVR:58 mls Urology Medication: finasteride Blood Thinner: none Tripe Cooker Required: No Accompanied by: Self / Same As Patient Allergies No Known Allergies Allergy (Verified 05/12/25 15:09) Medication List - Last Reconciled 05/12/25 by STEVE Romano- finasteride 5 mg PO .MWF 90 days lisinopril-hydrochlorothiazide 20-25 mg 1 tab PO DAILY HPI Comments Details: David is a very pleasant 69 year old male patient of Dr. Solorzano. He has a past medical history of nicotine dependence and prostatitis. In discussion with the patient today reports to be doing and feeling well. In discussion with the patient today reports to be doing and feeling well. He denies having had any bothersome urinary issues or concerns since his last office visit here approximately 1 year ago. He reports compliance with finasteride 3 times per week as prescribed. He discusses his upcoming halfway within the next 2 weeks. Of note, patient with a previous history of scrotal discomfort and underwent left inguinal injection with Dr. Jorge 07/12. He denies having had any further episodes of scrotal or groin pain since. He reports noting significant improvement and relief in his left-sided testicular/scrotal/groin. He denies urinary urgency, urinary frequency, incontinence, nocturia, hematuria, dysuria, foul smelling urine, changes to urinary stream, flank pain, fever, and or chills. He is happy with his current voiding parameters. In office urinalysis results reviewed with the patient today. No microscopic hematuria noted. PVR 58mls. Recent PSA results reviewed with the patient today as noted and trended below. All questions were answered. He otherwise offers no other issues or concerns at this time. Lower Urinary Tract Symptoms: stable Current visit is for further evaluation of, lower urinary tract symptoms, predominate obstructive symptoms - On finasteride Current treatment includes medication, 5-AR. Prior treatments include 11/03 flomax - but was dizzy. Prior Prostate Score 01/03 , moderate. PSA 07/08 1.0, 07/10 0.8, 05/11 0.5, 05/12 1.0, 05/13 1.5 Prostatitis - 11/07 Microscopic Hematuria: Did have 1+ on prior visit Microscopic hematuria was diagnosed during routine UA 11/03. clear with cystoscopy Since the last visit the patient has has not noticed gross hematuria, continues to test positive for microscopic hematuria. Relevant medical history for 1) Smoker for 45 ppd hx 2) workplace exposure to organics 3) No family history. Radiographic imagin/18 , CT IVP - normal. Other investigations 11/03 , cytology, normal. Therapeutic plan continue to follow [facility] Medical History Smoker Hx of melanoma of skin COVID-19 vaccine series completed Prostatitis Bladder outlet obstruction Incomplete emptying of bladder Nocturia Weak urinary stream Microscopic hematuria Surgical History History of right inguinal hernia repair (09/01/21) Hx of parotidectomy H/O colonoscopy Hx of cholecystectomy Hx of melanoma excision Social History Alcohol intake: former Patient Tobacco Use Status: Current everyday Tobacco user Tobacco use type: Cigarette Cigarettes Per Day: 12 Years Smoked: 50 Review of Systems Const Reports no additional complaints Eyes Reports no additional complaints ENT Reports no additional complaints Card Reports no additional complaints Resp Reports no additional complaints GI Reports no additional complaints Reports as per HPI Skin/Breast Reports as per HPI Neuro Reports no additional complaints Psych Reports no additional complaints Endo Reports no additional complaints Alexy/Lymph Reports no additional complaints Aller/Immun Reports no additional complaints Physical Exam Const General: cooperative, healthy appearing, comfortable, no acute distress, well developed, alert and awake Orientation/consciousness: patient oriented x3 Limitations: no limitations HEENT Head: Yes normal to inspection, Yes normocephalic and Yes atraumatic Ears: hearing grossly normal bilaterally Eyes General: appearance normal, both eyes and all related structures Neck Neck: Yes normal visual inspection and Yes trachea midline Chest Chest palpation & inspection: normal inspection of the chest Resp Effort & Inspection: normal respiratory effort and able to speak in complete sentences Cardio Rate: regular rate GI Inspection: Yes normal to inspection General: Yes no CVA tenderness Back/Spine/Pelvis Back: no CVA tenderness Skin General skin exam: no rashes or lesions noted Neuro General: patient oriented x3 Extrem General: Yes normal to inspection Psych Appearance: grossly normal Mental Status: mental status grossly normal Speech and movement: Clear speech present Affect: normal affect Attitude: cooperative Thought process: Normal thought process present Thought content: Normal thought content present Insight: Fair insight present (Psych) Judgement: Fair judgement present (Psych) Office Procedures Post Void Residual Post Residual Void Post Void Residual (PVR): 58 [id number] Void Residual by ultrasound Results AMB Urinalysis, Automated UA Leukoctes 0 Dequan/uL Last Edit by Sole Colon, [facility] on 05/12/25 14:49 UA Nitrite Negative Last Edit by Sole Colon, [facility] on 05/12/25 14:49 UA Urobilinogen 0.2 mg/dL Last Edit by Sole Colon, [facility] on 05/12/25 14:49 UA Protein 0 mg/dL Last Edit by Sole Colon, [facility] on 05/12/25 14:49 UA pH 6.0 Last Edit by Sole Colon, [facility] on 05/12/25 14:49 UA Blood 0 Mihai/uL Last Edit by Sole Colon, [facility] on 05/12/25 14:49 UA Specific [place] 1.010 Last Edit by Sole Colon, [facility] on 05/12/25 14:49 UA Ketone Negative Last Edit by Soel Colon, [facility] on 05/12/25 14:49 UA Bilirubin 0 mg/dL Last Edit by Sole Colon, [facility] on 05/12/25 14:49 UA Glucose 0 mg/dL Last Edit by Sole Colon, [facility] on 05/12/25 14:49 Results Reviewed Results Reviewed: Laboratory Last Values Urine pH (Auto) 6.0 05/12/25 14:49 Specific Goldonna (Auto) 1.010 05/12/25 14:49 Urine Protein (Auto) 0 mg/dL 05/12/25 14:49 Glucose (UA)(Auto) 0 mg/dL 05/12/25 14:49 Urine Ketones (Auto) Negative 05/12/25 14:49 Urine Blood (Auto) 0 Mihai/uL 05/12/25 14:49 Urine Nitrite (Auto) Negative 05/12/25 14:49 Urine Bilirubin (Auto) 0 mg/dL 05/12/25 14:49 Urine Urobilinogen (Auto) 0.2 mg/dL 05/12/25 14:49 Leukocyte Esterase (Auto) 0 Dequan/uL 05/12/25 14:49 Assessment & Plan Assessment & Plan (1) Scrotal pain: Code(s): N50.82 - Scrotal pain Category: Medical (2) Deep inguinal pain, left: Code(s): R10.32 - Left lower quadrant pain Category: Medical (3) Prostatitis: Code(s): N41.9 - Inflammatory disease of prostate, unspecified Category: Medical (4) BPH w urinary obs/LUTS: Code(s): N40.1 - Benign prostatic hyperplasia with lower urinary tract symptoms; N13.8 - Other obstructive and reflux uropathy Category: Medical (5) Microscopic hematuria: Code(s): R31.29 - Other microscopic hematuria Category: Medical Plan In office urinalysis results reviewed with the patient today; as noted above. PVR 58 mL Recent PSA results reviewed with the patient today; as noted above. Patient currently denies any bothersome urinary issues or concerns. He reports be happy with current voiding parameters. Continue finasteride 3 times per week as discussed and prescribed; refill provided. Will obtain PSA in 1 year. Follow-up in 1 year with PSA and PVR to be completed prior; or sooner with any issues, concerns, and or questions. Orders: Orders Prostate Specific Antigen 1 Year N13.8 - Other obstructive and reflux uropathy, N40.1 - Benign prostatic hyperplasia with lower urinary tract symptoms, N41.9 - Inflammatory disease of prostate, unspecified, N50.82 - Scrotal pain, R10.32 - Left lower quadrant pain, R31.29 - Other microscopic hematuria Patient Instructions: The patient had an opportunity to ask questions regarding the treatment plan. All questions were answered. Physical exam, labs, and imaging were discussed and reviewed in detail. As well as risks, benefits, and discussion of treatment choices. No major barriers to understanding were identified. The patient expressed understanding and agreement with the above treatment plan. The patient was made aware they should contact our office by phone for worsening of their current condition, the appearance of new symptoms, or with any questions or concerns. Compliance is encouraged with any medications and follow up testing that is ordered. It is a privilege to be allowed the opportunity to participate in? your urological care.? Again, if you have any questions or concerns If you have any questions or concerns please do not hesitate to contact me. The office is [phone]. This note is constructed using voice recognition software. While every effort has been made to ensure accuracy hydro technician errors may have been included. Yours sincerely, STEVE Roamno- Coding Level of Care Code Complex visit Add On G2211 Diagnoses Scrotal pain N50.82 Deep inguinal pain, left R10.32 Prostatitis N41.9 BPH w urinary obs/LUTS N40.1; N13.8 Microscopic hematuria R31.29 CPT Codes Post Residual Void - PVR CPT Code: 49982-Tnkm Void Residual by ultrasound ([id number])
== END 2025-05-12 15:09 | disposition home or self-care (01) ==
LOC: HO.HUSH 14:37
PROVIDERS: PCP Internal Medicine; Visit Provider Nurse Practitioner Family
DX: N50.82 Scrotal pain (principal); R10.32 Left lower quadrant pain; N41.9 Inflammatory disease of prostate, unspecified; N40.1 Benign prostatic hyperplasia with lower urinary tract symptoms; N13.8 Other obstructive and reflux uropathy; R31.29 Other microscopic hematuria

== ENCOUNTER → 2025-05-12 14:36 | Outpatient (BNVA) | payer BC, SELFPAY | PROVIDERS: PCP Internal Medicine; Visit Provider Nurse Practitioner Family | DX: N50.82 Scrotal pain (principal); R10.32 Left lower quadrant pain; N41.9 Inflammatory disease of prostate, unspecified; N40.1 Benign prostatic hyperplasia with lower urinary tract symptoms; N13.8 Other obstructive and reflux uropathy; R31.29 Other microscopic hematuria | CPT/HCPCS: 51798 ==